=== PATIENT | male | born 1970 | race Two or more races ===

== ENCOUNTER 2020-02-05 20:41 | Emergency (ER) | payer MEDICAID ==
[~2020-02-05] VITALS: Ht 175.3 cm; Wt 79.4 kg
[2020-02-05 20:42] VITALS: BP 145/86
[2020-02-05] MEDS ORDERED: HYDROMORPHONE 1 MG/1 ML DISP.SYRIN IM ONE ×2 (21:00→22:30)
[2020-02-05] MEDS ORDERED: DEXAMETHASONE SOD PHOSPHATE 4 MG/ML VIAL IM ONE (21:00)
[2020-02-05] MEDS ORDERED: ONDANSETRON 4 MG TAB.RAPDIS PO ONE (21:00)
[2020-02-05] MEDS ORDERED: HYDROMORPHONE 1 MG/1 ML DISP.SYRIN ONE ×2 (21:03→22:09)
[2020-02-05] MEDS ORDERED: ONDANSETRON 4 MG TAB.RAPDIS ONE (21:03)
[2020-02-05] MEDS ORDERED: DEXAMETHASONE SOD PHOSPHATE 10 MG/ML VIAL ONE (21:03)
--- NOTE | 2020-02-05 21:06 | NUR ---
patient came to er bib ra c/o lumbar back pain radiating to the right hip. pt states that he had a misstep upon exiting a truck, when he hyperextended his right hip. aaox 4 no sob breathing evenly and unlabored on Room Air. connected to monitor.
--- NOTE | 2020-02-05 21:15 | NUR ---
XRAY AT BEDSIDE
--- NOTE | 2020-02-05 22:31 | NUR ---
PATIENT IS STANDING, STATES THAT HE WOULD LIKE TO GO HOME. MADYSON CORNEJO NOTIFIED.
--- NOTE | 2020-02-05 22:47 | NUR ---
Patient is ambulatory with a slow and steady gait. is outside to [facility] [employer]
--- NOTE | 2020-02-05 22:48 | NUR ---
Patient discharged to home in stable condition. Written and verbal after care instructions given. Patient verbalizes understanding of instruction.
== END 2020-02-05 22:49 | disposition home or self-care (01) ==
LOC: ER 20:43
DX: M54.5 Low back pain (principal); G89.29 Other chronic pain; Z98.890 Other specified postprocedural states; Z88.6 Allergy status to analgesic agent
CPT/HCPCS: 72110; 96372 ×3; 99284; J1100; J1170 ×2; Q0162

== ENCOUNTER 2022-09-10 07:12 | Emergency (ER) | payer MEDICAID ==
[~2022-09-10] VITALS: Ht 175.3 cm; Wt 79.4 kg
--- NOTE | 2022-09-10 07:20 | NUR ---
took an "m-30" labaled pill last night, thinks it could have fentanyl,having panic attacks. awake/alert on arrival
[2022-09-10] MEDS ORDERED: LORAZEPAM 1 MG TABLET ONE (07:52)
[2022-09-10] MEDS: LORAZEPAM 1 MG TABLET PO ONE (07:54)
--- NOTE | 2022-09-10 07:57 | NUR ---
medicated as ordered
[2022-09-10] MEDS ORDERED: ONDANSETRON 4 MG TAB.RAPDIS ONE (08:13)
[2022-09-10] MEDS: ONDANSETRON 4 MG TAB.RAPDIS SL ONE (08:14)
[2022-09-10] MEDS ORDERED: NALO4SPR BNOSTRILS (08:54)
[2022-09-10 09:11] VITALS: BP 141/79
--- NOTE | 2022-09-10 09:11 | NUR ---
Patient discharged to home in stable condition. Written and verbal after care instructions given. Patient verbalizes understanding of instruction.
== END 2022-09-10 09:12 | disposition home or self-care (01) ==
LOC: ER 07:23
DX: F41.9 Anxiety disorder, unspecified (principal); T50.901A Poisoning by unspecified drugs, medicaments and biological substances, accidental (unintentional), initial encounter; G89.29 Other chronic pain; Z88.8 Allergy status to other drugs, medicaments and biological substances; Y92.89 Other specified places as the place of occurrence of the external cause
CPT/HCPCS: 99283; Q0162

== ENCOUNTER → 2022-10-23 | Emergency (ER) | payer MEDICAID ==
[~2022-10-23] VITALS: Ht 170.2 cm; Wt 77.1 kg
[~2022-10-23] MED LIST: LORAZEPAM 1 MG TABLET ONE; LORAZEPAM 1 MG TABLET PO ONE; NALO4SPR BNOSTRILS; ONDANSETRON 4 MG TAB.RAPDIS ONE; ONDANSETRON 4 MG TAB.RAPDIS SL ONE
[2022-10-23 16:09] VITALS: BP 127/85
--- NOTE | 2022-10-23 16:45 | NUR ---
Patient discharged to home in stable condition. Written and verbal after care instructions given. Patient verbalizes understanding of instruction.
== END | disposition home or self-care (01) ==
LOC: ER 15:58
DX: F41.9 Anxiety disorder, unspecified (principal); Z98.890 Other specified postprocedural states; Z79.899 Other long term (current) drug therapy; Z88.1 Allergy status to other antibiotic agents
CPT/HCPCS: 99283; Q0162

== ENCOUNTER 2024-06-11 13:50 | Emergency (ER) | payer MEDICAID, OTHER ==
[~2024-06-11] VITALS: Ht 170.2 cm; Wt 72.6 kg
[~2024-06-11 13:50] MED LIST changes: -LORAZEPAM 1 MG TABLET ONE; -LORAZEPAM 1 MG TABLET PO ONE; -ONDANSETRON 4 MG TAB.RAPDIS ONE; -ONDANSETRON 4 MG TAB.RAPDIS SL ONE
[2024-06-11 14:50] LABS: BASOPHILS # (AUTO) 0.1 K/uL (0.0-0.2); EOSINOPHILS # (AUTO) 0.1 K/uL (0.0-0.7); EOSINOPHILS % (AUTO) 0.9 % (0.0-6.0); HEMATOCRIT 39 % (39-51); HEMOGLOBIN 13.5 g/dL (13.5-17.5); LYMPHOCYTES # (AUTO) 1.5 K/uL (0.8-4.8); LYMPHOCYTES % (AUTO) 18.6 % (20.0-44.0); MEAN CORPUSCULAR HEMOGLOBIN 34 PG (26.0-33.0); MEAN CORPUSCULAR HGB CONC 35 g/dl (31.0-36.0); MEAN CORPUSCULAR VOLUME 99 fL (80-96); MONOCYTES # (AUTO) 0.7 K/uL (0.1-1.30); MONOCYTES % (AUTO) 8.7 % (2.0-12.0); NEUTROPHILS # (AUTO) 5.8 K/uL (1.8-8.9); NEUTROPHILS % (AUTO) 70.8 % (43.0-81.0); PLATELET COUNT (AUTO) 177 K/uL (150-450); RED BLOOD CELL COUNT(AUTO) 3.93 MIL/uL (4.5-6.0); RED CELL DISTRIBUTION WIDTH 14.9 % (11.5-15.0); WHITE BLOOD COUNT (AUTO) 8.2 K/uL (4.3-11.0)
[2024-06-11 15:04] LABS: ALBUMIN 3.7 g/dL (3.4-5.0); BILIRUBIN,DIRECT 0.1 mg/dL (0.0-0.2); BILIRUBIN,TOTAL 0.5 mg/dL (0.2-1.0); CALCIUM, SERUM 8.7 mg/dL (8.5-10.1); CREATININE 0.9 mg/dL (0.6-1.3); POTASSIUM 3.3 mmol/L (3.5-5.1); TOTAL PROTEIN, SERUM 7.3 g/dL (6.4-8.2)
[2024-06-11] MEDS ORDERED: oxyCODONE/APAP (5/325 MG) 1 UDTAB TABLET ONE (16:07)
[2024-06-11] MEDS ORDERED: POTASSIUM CHLORIDE 20 MEQ TAB.PRT.SR PO ONE (16:08)
[2024-06-11] MEDS: oxyCODONE/APAP (5/325 MG) 1 UDTAB TABLET PO ONE (16:14)
[2024-06-11] MEDS: POTASSIUM CHLORIDE 20 MEQ TAB.PRT.SR PO ONE (16:14)
[2024-06-11 16:48] VITALS: BP 151/81; TEMP 97.9; O2SAT 99
== END 2024-06-11 16:49 | disposition home or self-care (01) ==
LOC: ER 13:50
DX: F44.5 Conversion disorder with seizures or convulsions (principal); G89.29 Other chronic pain; M54.9 Dorsalgia, unspecified; R00.0 Tachycardia, unspecified; R25.1 Tremor, unspecified; R55 Syncope and collapse; E87.8 Other disorders of electrolyte and fluid balance, not elsewhere classified; F32.A Depression, unspecified; F41.9 Anxiety disorder, unspecified; I10 Essential (primary) hypertension; Z88.6 Allergy status to analgesic agent
CPT/HCPCS: 36415; 70450-TC; 80048-TC; 80076-TC; 84484-TC; 85025-TC

== ENCOUNTER 2024-08-18 00:32 | Emergency (ER) | payer OTHER ==
[~2024-08-18] VITALS: Ht 175.3 cm; Wt 74.8 kg
[2024-08-18] MEDS ORDERED: LIDO30AD10 TP (02:17)
[2024-08-18] MEDS ORDERED: CYCL5TAB PO (02:17)
[2024-08-18] MEDS ORDERED: PRED5TAB48 PO (02:17)
[2024-08-18] MEDS ORDERED: oxyCODONE/APAP (5/325 MG) 1 UDTAB TABLET ONE (02:21)
[2024-08-18] MEDS ORDERED: predniSONE 20 MG TABLET ONE (02:21)
[2024-08-18] MEDS ORDERED: CYCLOBENZAPRINE 10 MG TABLET ONE (02:21)
[2024-08-18 02:25] VITALS: BP 133/75; TEMP 98.1; O2SAT 99
[2024-08-18] MEDS: CYCLOBENZAPRINE 10 MG TABLET PO ONE (02:25)
[2024-08-18] MEDS: predniSONE 20 MG TABLET PO ONE (02:25)
[2024-08-18] MEDS: oxyCODONE/APAP (5/325 MG) 1 UDTAB TABLET PO ONE (02:25)
== END 2024-08-18 02:26 | disposition home or self-care (01) ==
LOC: ER 00:34
DX: G89.29 Other chronic pain (principal); M54.50 Low back pain, unspecified; I10 Essential (primary) hypertension; Z88.6 Allergy status to analgesic agent; Z79.899 Other long term (current) drug therapy
CPT/HCPCS: 99284; J7512

== ENCOUNTER 2024-09-20 00:10 | Emergency (ER) | payer OTHER ==
[~2024-09-20] VITALS: Ht 175.3 cm; Wt 74.8 kg
[~2024-09-20 00:10] MED LIST changes: +CYCL5TAB PO; +LIDO30AD10 TP; +PRED5TAB48 PO
[2024-09-20 00:32] VITALS: BP 151/87; TEMP 98; O2SAT 98
== END 2024-09-20 01:14 | disposition home or self-care (01) ==
LOC: ER 00:30
DX: M25.511 Pain in right shoulder (principal); G89.29 Other chronic pain; I10 Essential (primary) hypertension; Z79.52 Long term (current) use of systemic steroids; Z88.6 Allergy status to analgesic agent
CPT/HCPCS: 73030-TC